=== PATIENT | female | born 2000 | race Caucasian/White ===

== ENCOUNTER 2020-10-17 14:45 | Outpatient (CLI) | payer OTHER, SELFPAY ==
--- NOTE | ~2020-10-17 | US_ITS ---
US OB /maternal detail DATE: 10/17/2020 15:39 INDICATION: anatomy screen TECHNIQUE: Real-time imaging and Doppler analysis COMPARISON: None FINDINGS: Live latif intrauterine gestation, fetus in transverse lie. Posterior placenta. The low er placental margin is 6 cm above the internal os. Amniotic fluid index measures 9.0 cm, at 5th percentile. No cerebral ventriculomegaly. cerebellum is normal. Nuchal fold appears normal. f acial profile normal. The spine is not optimally demonstrated due to patient position. Four chamber heart; heart rate 150 bpm. Normal left and right outflow tracts. Three vessel umbilical cord with normal insertion at abdominal wall. The diaphragm is intact. Fluid is demonstrated in stomach and urinary bladder. No hydronephrosis. BPD: 4.6 cm; 19 weeks 6 days Head circumference: 16.84 cm; 19 weeks 3 days Abdominal circumference: 15.67 cm; 20 weeks 6 days Femur length: 3.12 cm; 19 weeks 5 days Composite age by Hadlock formula: 20 weeks plus or minus 1 week 3 days; DAVID by ultrasound: 03/06/2021 Estimated weight: 338.41 plus or minus 50.8 grams HC/AC 1.08; normal range 1.08-1.25 FL/HC 18.50; normal range 16.80-19.80 IMPRESSION: Composite age by Hadlock formula: 20 weeks plus or minus 1 week 3 days; DAVID by ultrasoun d: 03/06/2021 Estimated weight: 338.41 plus or minus 50.8 grams Reviewed, dictated and finalized at [facility]. Reviewed, dictated and finalized at [facility]. IMPRESSION: Composite age by Hadlock formula: 20 weeks plus or minus 1 week 3 days; DAVID by ultrasound: 03/06/2021 Estimated weight: 338.41 plus or minus 50.8 grams
== END 2020-10-17 14:46 | disposition home or self-care (01) ==
PROVIDERS: Visit Provider Obstetrics & Gynecology
DX: Z36.89 Encounter for other specified antenatal screening (principal); Z3A.20 20 weeks gestation of pregnancy
CPT/HCPCS: 76805

== ENCOUNTER 2020-11-11 14:49 | Outpatient (CLI) | payer OTHER, SELFPAY ==
--- NOTE | ~2020-11-11 | US_ITS ---
EXAMINATION: US OB limited DATE: 11/11/2020 15:26 INDICATION: Incomplete second trimester anatomic survey TECHNIQUE: Real-time ultrasound of the pelvis was performed. The interpreting radiologist was not pre sent for the study. COMPARISON: 10/17/2020 FINDINGS: There is a single living fetus in vertex presentation. The placenta is posterior. car diac activity and movement are noted. heart rate is 155 beats per minute (bpm). The amnio tic fluid index is subjectively normal. The spine appears normal. IMPRESSION: 1. Single living fetus in vertex presentation. 2. The spine appears normal. Reviewed, dictated and finalized at [facility].
== END 2020-11-11 14:50 | disposition home or self-care (01) ==
PROVIDERS: Visit Provider Obstetrics & Gynecology
DX: Z34.92 Encounter for supervision of normal pregnancy, unspecified, second trimester (principal); Z3A.24 24 weeks gestation of pregnancy
CPT/HCPCS: 76815